=== PATIENT | female | born 1980 | race American Indian/Alaskan Native ===

== ENCOUNTER 2020-01-01 19:56 | Emergency (ER) | payer SELFPAY ==
[2020-01-01 20:07] VITALS: BP 139/80
[2020-01-01] MEDS: traMADol 50 MG TAB PO ONE (21:03)
--- NOTE | 2020-01-01 21:15 | Emergency Department Report ---
ED Lower Extremity HPI - General Chief Complaint: Extremity Injury, Lower Stated Complaint: LEFT FOOT PAIN AND SWELLING Time Seen by Provider: 01/01/20 20:53 Source: patient Mode of arrival: Ambulatory Limitations: No Limitations - History of Present Illness Initial Comments: Ms. Price is a 39-year-old white female with a history of traumatic injury le ft foot. She presents for increased pain and swelling for the past 3 days. She denies new fall injury or trauma. States pain is rated at 5/10 aching. Pain is exacerbated by weightbearing. Pain is relieved by offloading. Patient states newly arrived in [place] and cannot see orthopedic surgery however requesting pain medication for foot pain that is chronic at this time.. She is partially amatory to baseline at this point. MD Complaint: foot injury Onset/Timin -: days(s) Injury: Foot: Left Type of Injury: other (hx trauma foot fracture ) Place: home Severity: moderate Severity scale (0 -10): 5 Improves With: rest Worsens With: weight bearing, movement, palpation Context: other (hx traumatic fx ) Associated Symptoms: swelling, tingling, able to partially bear weight. denies: numbness - Related Data Previous Rx's Medication Instructions Recorded Last Taken Type Acetaminophen [Acetaminophen TAB] 1,000 mg PO Q6HR PRN #30 tablet 01/01/20 Unknown Rx ED Review of Systems ROS: Stated complaint: LEFT FOOT PAIN AND SWELLING Other details as noted in HPI Constitutional: denies: chills, fever Eyes: denies: eye pain, eye discharge, vision change ENT: denies: ear pain, throat pain Respiratory: denies: cough, shortness of breath, wheezing Cardiovascular: denies: chest pain, palpitations Endocrine: no symptoms reported Gastrointestinal: denies: abdominal pain, nausea, diarrhea Genitourinary: denies: urgency, dysuria, discharge Musculoskeletal: joint swelling (left foot pain and swelling ), arthralgia. denies: back pain Skin: denies: rash, lesions Neurological: denies: headache, weakness, paresthesias Psychiatric: denies: anxiety, depression Hematological/Lymphatic: denies: easy bleeding, easy bruising ED Past Medical Hx - Past Medical History Previous Medical History?: Yes - Surgical History Past Surgical History?: Yes Additional Surgical History: historectomy liver biopsy left foot surgery. - Social History Smoking Status: Current Every Day Smoker Substance Use Type: None - Medications Home Medications: Home Medications Medication Instructions Recorded Confirmed Last Taken Type Acetaminophen [Acetaminophen TAB] 1,000 mg PO Q6HR PRN #30 tablet 01/01/20 Unknown Rx ED Physical Exam - General Limitations: No Limitations General appearance: alert, in no apparent distress - Head Head exam: Present: atraumatic, normocephalic - Eye Eye exam: Present: normal appearance - ENT ENT exam: Present: mucous membranes moist - Neck Neck exam: Present: normal inspection, full ROM. Absent: tenderness - Respiratory Respiratory exam: Present: normal lung sounds bilaterally. Absent: respiratory distress - Cardiovascular Cardiovascular Exam: Present: regular rate, normal rhythm, normal heart sounds. Absent: systolic murmur, diastolic murmur, rubs, gallop - GI/Abdominal GI/Abdominal exam: Present: soft, normal bowel sounds - Extremities Exam Extremities exam: Present: full ROM, tenderness (left lateral foot swelling no wound no fever no deformity ), normal capillary refill, joint swelling. Absent: pedal edema, calf tenderness - Expanded Lower Extremity Exam Left Foot/Toe exam: Present: full ROM, tenderness, swelling. Absent: abrasion, lac eration, ecchymosis, deformity, crepidus, dislocation, erythema, amputation, puncture wound, foreign body, calcaneal tenderness, tenderness at base of 5th metatarsal, nail avulsion, subungual hematoma Neuro vascular tendon exam: Absent: pulse deficit, motor deficit, sensory deficit, tendon deficit - Back Exam Back exam: Present: normal inspection, full ROM. Absent: tenderness - Neurological Exam Neurological exam: Present: alert, oriented X3, CN II-XII intact, normal gait - Psychiatric Psychiatric exam: Present: normal affect, normal mood - Skin Skin exam: Present: warm, dry, intact, normal color. Absent: rash ED Course Vital Signs 01/01/20 20:01 Temperature 97.8 F Pulse Rate 99 H Respiratory 18 Rate Blood Pressure 139/80 Blood Pressure 139/80 [Right] O2 Sat by Pulse 99 Oximetry ED Lower Extremity MDM - Radiology Data Radiology results: report reviewed, image reviewed Findings Reporting MD: Gal Kelly Dictation Time: January 01, 2020 20:32 Stereotyper Apprentice: Not available Presales Engineer Date: LEFT ANKLE, 3 VIEWS 01/01/2020 INDICATION / CLINICAL INFORMATION: pain swelling. COMPARISON: None available. FINDINGS: No ankle fracture or dislocation. The ankle mortise is well maintained. Orthopedic screws and plate are demonstrated in the calcaneus. Signer Name: Gal Kelly MD Signed: 01/01/2020 8:32 PM Workstation Name: [email or web address] - Medical Decision Making X-rays negative for fracture. There is no acute fracture. Plan NSAIDs follow- up with orthopedic surgery. Patient verbalized agreement and understanding with discharge plan. Patient DC'd home in stable condition at this time. Critical care attestation.: If time is entered above; I have spent that time in minutes in the direct care of this critically ill patient, excluding procedure time. ED Disposition Clinical Impression: Arthralgia Qualifiers: Joint pain location: ankle Laterality: left Qualified Code(s): M25.572 - Pain in left ankle and joints of left foot Disposition: DC-01 TO HOME OR SELFCARE Is pt being admited?: No Does the pt Need Aspirin: No Condition: Stable Instructions: Arthralgia (ED) Prescriptions: Acetaminophen [Acetaminophen TAB] 1,000 mg PO Q6HR PRN #30 tablet PRN Reason: pain Referrals: CATHIE DEE MD [Staff Physician] - 3-5 Days Forms: Work/School Release Form Time of Disposition: 22:16
--- NOTE | 2020-01-01 21:37 | XRay Report ---
LEFT ANKLE, 3 VIEWS 01/01/2020 INDICATION / CLINICAL INFORMATION: pain swelling. COMPARISON: None available. FINDINGS: No ankle fracture or dislocation. The ankle mortise is well maintained. Orthopedic screws and plate are demonstrated in the calcaneus. Signer Name: Gal Kelly MD Signed: 01/01/2020 9:32 PM Workstation Name: [id number]
--- NOTE | 2020-01-01 21:38 | XRay Report ---
LEFT FOOT, 3 VIEWS 01/01/2020 INDICATION / CLINICAL INFORMATION: Left foot pain and swelling. COMPARISON: None available. FINDINGS: ORIF calcaneal fracture with posterior screw and lateral screws and plate. No acute skeletal abnormality. Signer Name: Gal Kelly MD Signed: 01/01/2020 9:34 PM Workstation Name: [id number]
== END 2020-01-01 22:39 | disposition home or self-care (01) ==
LOC: ED 19:56
DX: M25.572 Pain in left ankle and joints of left foot (principal); F17.200 Nicotine dependence, unspecified, uncomplicated; Z90.710 Acquired absence of both cervix and uterus; Z79.899 Other long term (current) drug therapy; Z98.890 Other specified postprocedural states
CPT/HCPCS: 99282

== ENCOUNTER 2022-01-30 13:26 | Emergency (ER) | payer SELFPAY ==
[2022-01-30] MEDS ORDERED: KETOROLAC 10 MG TAB PO ONE (17:55)
[2022-01-30] MEDS ORDERED: dexAMETHasone 4 MG/ML VIAL IM ONE (17:55)
[2022-01-30] MEDS ORDERED: oxyCODONE /ACETAMINOPHEN 5-325MG TAB PO ONE (17:56)
[2022-01-30] MEDS ORDERED: CYCLOBENZAPRINE 10 MG TAB PO ONE (17:56)
--- NOTE | 2022-01-30 18:05 | Emergency Department Report ---
ED Extremity Problem HPI - General Chief complaint: Pain General Stated complaint: LEFT HIP/LOWER LEG PAIN Time Seen by Provider: 01/30/22 17:34 Source: patient Mode of arrival: Ambulatory Limitations: No Limitations - History of Present Illness Initial comments: 41-year-old white female with no past medical history presents to the emergency department for evaluation of left lower back and hip pain that radiates down her entire leg. She states that she has had the pain for the past 3 days and it is getting increasingly worse. She denies injury or trauma and states that pain is worse with certain positions. She states that pain is like a deep ache. She denies chest pain, shortness of breath, hemoptysis, and fever. MD Complaint: extremity pain -: Gradual, days(s) (3) Location: left, lower extremity History of Same: No -: No myalgia, No arthralgia, No fever, No associated dyspnea Severity scale (0 -10): 10 Quality: aching Consistency: constant Worsens with: weight bearing, palpation, other (Certain movements) Associated Symptoms: denies: chest pain, shortness of breath, fever, myalgias, arthralgias, rash - Related Data Previous Rx's Medication Instructions Recorded Last Taken Type Acetaminophen [Acetaminophen TAB] 1,000 mg PO Q6HR PRN #30 tablet 01/01/20 Unknown Rx Cyclobenzaprine [Flexeril] 10 mg PO TID PRN #30 tab 01/30/22 Unknown Rx Lidocaine [Lidoderm] 1 each TP DAILY PRN #10 patch 01/30/22 Unknown Rx Naproxen [Naprosyn] 500 mg PO BID #14 tab 01/30/22 Unknown Rx methylPREDNISolone [Medrol 4MG 4 mg PO DAILY #1 pack 01/30/22 Unknown Rx DOSEPAK (21 tabs)] Allergies Allergy/AdvReac Type Severity Reaction Status Date / Time codeine Allergy Itching Verified 01/30/22 14:09 hydrocodone Allergy Itching Verified 01/30/22 14:09 penicillin G Allergy Hives Verified 01/30/22 14:09 tramadol Allergy Itching Verified 01/30/22 14:09 ED Review of Systems ROS: Stated complaint: LEFT HIP/LOWER LEG PAIN Other details as noted in HPI Comment: All other systems reviewed and negative Constitutional: denies: chills, fever Respiratory: denies: shortness of breath Cardiovascular: denies: chest pain, palpitations Gastrointestinal: denies: abdominal pain, nausea, vomiting Genitourinary: denies: urgency, dysuria Musculoskeletal: back pain Neurological: denies: headache, weakness ED Past Medical Hx - Past Medical History Previous Medical History?: No - Surgical History Additional Surgical History: historectomy liver biopsy left foot surgery. - Social History Smoking Status: Current Every Day Smoker - Medications Home Medications: Home Medications Medication Instructions Recorded Confirmed Last Taken Type Acetaminophen [Acetaminophen TAB] 1,000 mg PO Q6HR PRN #30 tablet 01/01/20 Unknown Rx Cyclobenzaprine [Flexeril] 10 mg PO TID PRN #30 tab 01/30/22 Unknown Rx Lidocaine [Lidoderm] 1 each TP DAILY PRN #10 patch 01/30/22 Unknown Rx Naproxen [Naprosyn] 500 mg PO BID #14 tab 01/30/22 Unknown Rx methylPREDNISolone [Medrol 4MG 4 mg PO DAILY #1 pack 01/30/22 Unknown Rx DOSEPAK (21 tabs)] ED Physical Exam - General Limitations: No Limitations General appearance: alert, in no apparent distress - Head Head exam: Present: atraumatic, normocephalic - Eye Eye exam: Present: normal appearance. Absent: conjunctival injection - Neck Neck exam: Present: normal inspection, full ROM. Absent: tenderness - Respiratory Respiratory exam: Absent: respiratory distress - Cardiovascular Cardiovascular Exam: Present: regular rate - GI/Abdominal GI/Abdominal exam: Absent: distended - Back Exam Back exam: Present: normal inspection. Absent: CVA tenderness (R), CVA tenderness (L), vertebral tenderness - Expanded Back Exam Expanded Back exam: Absent: saddle anesthesia Back exam: Positive Straight Leg Raise: Left, Negative Straight Leg Raising: Right 1 - Tenderness - Neurological Exam Neurological exam: Present: alert, oriented X3, CN II-XII intact, normal gait, reflexes normal. Absent: motor sensory deficit - Psychiatric Psychiatric exam: Present: normal affect, normal mood - Skin Skin exam: Present: warm, dry, intact, normal color ED Course Vital Signs 01/30/22 01/30/22 14:03 18:26 Temperature 98.2 F 98.2 F Pulse Rate 79 60 Respiratory 18 14 Rate Blood Pressure 90/49 Blood Pressure 100/59 [Right] O2 Sat by Pulse 100 98 Oximetry ED Medical Decision Making - Medical Decision Making 41-year-old white female with no past medical history presents to the emergency department for evaluation of left lower back and hip pain that radiates down her entire leg. She states that she has had the pain for the past 3 days and it is getting increasingly worse. She denies injury or trauma and states that pain is worse with certain positions. She states that pain is like a deep ache. She denies chest pain, shortness of breath, hemoptysis, and fever. Complaint and exam consistent with sciatic nerve pain to the left side. Patient will be treated with Decadron 8 mg IM, Toradol 10 mg p.o., Flexeril 10 mg p.o., and Percocet 1 tab p.o. while in the emergency department then discharged home with Medrol Dosepak, Flexeril, naproxen, and Lidoderm patches to use as directed. She is advised to follow-up with her primary care provider if no improvement or worsening symptoms. She is advised to return to the emergency department for any concerning symptoms. She verbalizes understanding of and agreement with plan of care. Critical care attestation.: If time is entered above; I have spent that time in minutes in the direct care of this critically ill patient, excluding procedure time. ED Disposition Clinical Impression: Left sciatic nerve pain Disposition: HOME / SELF CARE / HOMELESS Is pt being admited?: No Does the pt Need Aspirin: No Condition: Stable Instructions: Sciatica, Malj-ki-Irak, Sciatica Rehab-SportsMed Additional Instructions: Take medications as prescribed. Follow-up with primary care provider if no improvement or worsening symptoms. Turn to the emergency department as needed. Prescriptions: Cyclobenzaprine [Flexeril] 10 mg PO TID PRN #30 tab PRN Reason: Muscle Spasm Lidocaine [Lidoderm] 1 each TP DAILY PRN #10 patch PRN Reason: Pain, Moderate (4-6) methylPREDNISolone [Medrol 4MG DOSEPAK (21 tabs)] 4 mg PO DAILY #1 pack Naproxen [Naprosyn] 500 mg PO BID #14 tab Referrals: NITO RIBEIRO MD [Staff Physician] - 3-5 Days CATHIE DEE MD [Staff Physician] - 3-5 Days Forms: Work/School Release Form(ED) Time of Disposition: 18:05
[2022-01-30 18:27] VITALS: BP 100/59
== END 2022-01-30 18:33 | disposition home or self-care (01) ==
LOC: ED 13:26
DX: M54.32 Sciatica, left side (principal); F17.200 Nicotine dependence, unspecified, uncomplicated; Z88.0 Allergy status to penicillin; Z91.09 Other allergy status, other than to drugs and biological substances; Z79.899 Other long term (current) drug therapy
CPT/HCPCS: 96372; 99282; J1100

== ENCOUNTER 2022-02-02 23:21 | Inpatient (IN) | payer SELFPAY ==
--- NOTE | 2022-02-03 02:09 | XRay Report ---
LEFT HIP 3 VIEW(S) INDICATION / CLINICAL INFORMATION: left hip pain COMPARISON: None available. FINDINGS: BONES / JOINT(S): Acute nondisplaced fracture of the left femoral neck is demonstrated. No dislocatio n of the left femoral head. Osseous structures of the lower lumbar spine, pelvis, proximal right femu r demonstrate no acute pathology. No significant arthritis. SOFT TISSUES: No significant abnormality. ADDITIONAL FINDINGS: None. IMPRESSION: 1. Acute nondisplaced fracture left femoral neck. Signer Name: Ajit Garcia II, MD Signed: 02/03/2022 2:05 AM Workstation Name: [id number]
[2022-02-03] MEDS ORDERED: MORPHINE 4 MG/1 ML INJ IV ONE (09:32)
[2022-02-03] MEDS ORDERED: ONDANSETRON 4 MG/2 ML INJ IV ONE (09:32)
--- NOTE | 2022-02-03 09:58 | Emergency Department Report ---
<ANNE-MARIEBENSANDY Terrell - Last Filed: 02/03/22 09:54> ED Lower Extremity HPI - General Chief Complaint: Extremity Injury, Lower Stated Complaint: LEFT HIP PAIN Time Seen by Provider: 02/03/22 09:31 Source: patient, family Mode of arrival: Ambulatory Limitations: No Limitations - History of Present Illness Initial Comments: 41-year-old white female with no past medical history presents to the emergency department for evaluation of left hip pain. She states that she was seen here on January 30 for the same complaint, given some medications, but only had minimal improvement in her hip pain. She states that a couple of days ago she tripped and fell over her cat and since then left hip pain has been significantly worse and she has been unable to ambulate on left lower extremity. She denies fever, nausea, vomiting. MD Complaint: hip injury -: Gradual, days(s) (2-3) Injury: Hip: Left Type of Injury: blunt Place: home Severity: severe Severity scale (0 -10): 10 Worsens With: weight bearing, movement, palpation Context: fall Associated Symptoms: unable to bear weight. denies: snap/pop sensation, swelling, numbness, tingling - Related Data Previous Rx's Medication Instructions Recorded Last Taken Type Acetaminophen [Acetaminophen TAB] 1,000 mg PO Q6HR PRN #30 tablet 01/01/20 Unknown Rx Cyclobenzaprine [Flexeril] 10 mg PO TID PRN #30 tab 01/30/22 Unknown Rx Lidocaine [Lidoderm] 1 each TP DAILY PRN #10 patch 01/30/22 Unknown Rx Naproxen [Naprosyn] 500 mg PO BID #14 tab 01/30/22 Unknown Rx methylPREDNISolone [Medrol 4MG 4 mg PO DAILY #1 pack 01/30/22 Unknown Rx DOSEPAK (21 tabs)] Allergies Allergy/AdvReac Type Severity Reaction Status Date / Time codeine Allergy Itching Verified 01/30/22 14:09 hydrocodone Allergy Itching Verified 01/30/22 14:09 penicillin G Allergy Hives Verified 01/30/22 14:09 tramadol Allergy Itching Verified 01/30/22 14:09 ED Review of Systems Comment: All other systems reviewed and negative Constitutional: denies: chills, fever Respiratory: denies: shortness of breath Cardiovascular: denies: chest pain Gastrointestinal: denies: abdominal pain, nausea, vomiting Musculoskeletal: denies: back pain Neurological: denies: headache, weakness ED Past Medical Hx - Past Medical History Previous Medical History?: No - Surgical History Past Surgical History?: Yes Additional Surgical History: historectomy liver biopsy left foot surgery. - Social History Smoking Status: Current Every Day Smoker Substance Use Type: None - Medications Home Medications: Home Medications Medication Instructions Recorded Confirmed Last Taken Type Acetaminophen [Acetaminophen TAB] 1,000 mg PO Q6HR PRN #30 tablet 01/01/20 Unknown Rx Cyclobenzaprine [Flexeril] 10 mg PO TID PRN #30 tab 01/30/22 Unknown Rx Lidocaine [Lidoderm] 1 each TP DAILY PRN #10 patch 01/30/22 Unknown Rx Naproxen [Naprosyn] 500 mg PO BID #14 tab 01/30/22 Unknown Rx methylPREDNISolone [Medrol 4MG 4 mg PO DAILY #1 pack 01/30/22 Unknown Rx DOSEPAK (21 tabs)] ED Physical Exam - General Limitations: No Limitations General appearance: alert, in no apparent distress - Head Head exam: Present: atraumatic, normocephalic - Eye Eye exam: Present: normal appearance. Absent: conjunctival injection - Neck Neck exam: Present: normal inspection, full ROM. Absent: tenderness - Respiratory Respiratory exam: Absent: respiratory distress - Cardiovascular Cardiovascular Exam: Present: regular rate - GI/Abdominal GI/Abdominal exam: Absent: distended - Expanded Lower Extremity Exam Left Hip exam: Present: tenderness. Absent: full ROM, swelling, ecchymosis, crepidus, dislocation, erythema, shortening Upper Leg exam: Present: normal inspection, tenderness Knee exam: Present: normal inspection, full ROM. Absent: tenderness, swelling Lower Leg exam: Absent: normal inspection, tenderness Neuro vascular tendon exam: Present: no vascular compromise. Absent: pulse deficit, abnormal cap refill, motor deficit, sensory deficit, extremity cold to touch Gait: Positive: unable to bear weight - Neurological Exam Neurological exam: Present: alert, oriented X3 - Psychiatric Psychiatric exam: Present: normal affect, normal mood - Skin Skin exam: Present: warm, dry, intact, normal color ED Disposition Clinical Impression: Femur fracture, left Qualifiers: Encounter type: initial encounter Femur location: base of neck Fracture type: closed Disposition: ADMITTED INPATIENT Condition: Good Referrals: PRIMARY CARE, [Primary Care Provider] - 3-5 Days <SATHYA DANGELO - Last Filed: 02/03/22 11:40> ED Review of Systems ROS: Stated complaint: LEFT HIP PAIN Other details as noted in HPI ED Course Vital Signs 02/03/22 02/03/22 02/03/22 00:47 10:21 10:30 Temperature 98.8 F Pulse Rate 90 77 90 Respiratory 18 16 16 Rate Blood Pressure 115/62 O2 Sat by Pulse 97 Oximetry - Reevaluation(s) Reevaluation #1: 02/03/22 10:11 Patient is found to have left femoral neck fracture. She is neurovascularly intact. Dr. Machuca, the orthopedist was consulted by my colleague, nurse practitioner aVsile. Dr. Machuca will follow in consultation. Preoperative laboratory studies have been ordered. Patient is agreeable to admission and hospitalization. Hospital physician, Dr. Machado to admit to [facility] ED Lower Extremity MDM - Lab Data Result diagrams: 02/03/22 09:32 02/03/22 09:32 Vital Signs 02/03/22 00:47 Temperature 98.8 F Pulse Rate 90 Respiratory 18 Rate Blood Pressure 115/62 O2 Sat by Pulse 97 Oximetry Lab Results 02/03/22 02/03/22 02/03/22 Range/Units 09:32 09:32 09:32 WBC 13.4 H (4.5-11.0) K/mm3 RBC 4.63 (3.65-5.03) M/mm3 Hgb 14.4 H (10.1-14.3) gm/dl Hct 43.3 H (30.3-42.9) % MCV 94 (79-97) fl MCH 31 (28-32) pg MCHC 33 (30-34) % RDW 14.8 (13.2-15.2) % Plt Count 382 (140-440) K/mm3 PT 13.4 (12.2-14.9) Sec. INR 0.92 (0.87-1.13) APTT 26.0 (24.2-36.6) Sec. Sodium 138 (137-145) mmol/L Potassium 3.2 L (3.6-5.0) mmol/L Chloride 104.9 (98-107) mmol/L Carbon Dioxide 21 L (22-30) mmol/L Anion Gap 15 mmol/L BUN 13 (7-17) mg/dL Creatinine 0.6 (0.6-1.2) mg/dL Estimated GFR > 60 ml/min BUN/Creatinine Ratio 22 % Glucose 93 (65-100) mg/dL Calcium 8.9 (8.4-10.2) mg/dL Blood Type Antibody Screen 02/03/22 Range/Units 10:17 WBC (4.5-11.0) K/mm3 RBC (3.65-5.03) M/mm3 Hgb (10.1-14.3) gm/dl Hct (30.3-42.9) % MCV (79-97) fl MCH (28-32) pg MCHC (30-34) % RDW (13.2-15.2) % Plt Count (140-440) K/mm3 PT (12.2-14.9) Sec. INR (0.87-1.13) APTT (24.2-36.6) Sec. Sodium (137-145) mmol/L Potassium (3.6-5.0) mmol/L Chloride (98-107) mmol/L Carbon Dioxide (22-30) mmol/L Anion Gap mmol/L BUN (7-17) mg/dL Creatinine (0.6-1.2) mg/dL Estimated GFR ml/min BUN/Creatinine Ratio % Glucose (65-100) mg/dL Calcium (8.4-10.2) mg/dL Blood Type B POSITIVE Antibody Screen Negative - Radiology Data Radiology results: pending, report reviewed, image reviewed LEFT HIP 3 VIEW(S) INDICATION / CLINICAL INFORMATION: left hip pain COMP ARISON: None available. FINDINGS: BONES / JOINT(S): Acute nondisplaced fracture of the left femoral neck is demonstrated. No dislocation of the left femoral head. Osseous structures of the lower lumbar spine, pelvis, proximal right femur demonstrate no acute pathology. No significant arthritis. SOFT TISSUES: No significant abnormality. ADDITIONAL FINDINGS: None. IMPRESSION: 1. Acute nondisplaced fracture left femoral neck. Signer Name: Ajit Garcia II, MD Signed: 02/03/2022 1:05 AM Workstation Name: [id number] Critical care attestation.: If time is entered above; I have spent that time in minutes in the direct care of this critically ill patient, excluding procedure time. ED Disposition Is pt being admited?: Yes Does the pt Need Aspirin: No
[2022-02-03] MEDS: SODIUM CHLORIDE 0.9% 1000 ML 1,000 ML IV SCH ×3 (10:24→21:57)
[2022-02-03 10:30] LABS: Hematocrit 43.3 % (30.3-42.9); Hemoglobin 14.4 gm/dl (10.1-14.3); Mean Corpuscular HGB Conc 33 % (30-34); Mean Corpuscular Volume 94 fl (79-97); Platelet Count 382 K/mm3 (140-440); Red Blood Count 4.63 M/mm3 (3.65-5.03); Red Cell Distribution Width 14.8 % (13.2-15.2)
[2022-02-03 10:42] LABS: Blood Urea Nitrogen 13 mg/dL (7-17); Calcium 8.9 mg/dL (8.4-10.2); Hemolysis Index 34; INR 0.92 (0.87-1.13)
[2022-02-03 10:48] LABS: BUN/Creatinine Ratio 22
[2022-02-03] MEDS ORDERED: MORPHINE 4 MG/1 ML INJ IV PRN (10:55)
[2022-02-03] MEDS ORDERED: ACETAMINOPHEN 325 MG TAB PO PRN (11:00)
[2022-02-03] MEDS ORDERED: KETOROLAC 30 MG/1 ML INJ ONE (11:17)
[2022-02-03] MEDS ORDERED: POTASSIUM CHLORIDE ER 20 MEQ TAB PO ONE ×2 (11:38→15:00)
[2022-02-03] MEDS ORDERED: KETOROLAC 30 MG/1 ML INJ IV ONE (11:47)
[2022-02-03] MEDS: ENOXAPARIN 30 MG/0.3 ML INJ SUB-Q SCH (11:48)
--- NOTE | 2022-02-03 12:10 | Anesthesia Day of Surgery ---
Anesthesia Day of Surgery - Day of Surgery Patient Examined: Yes Patient H&P Reviewed: Yes Patient is NPO: Yes (last water @8AM )
--- NOTE | 2022-02-03 12:10 | Anesthesia Consultation ---
Anesthesia Consult and Med Hx Date of service: 02/03/22 - Airway Anesthetic Teeth Evaluation: Edentulous ROM Head & Neck: Adequate Mental/Hyoid Distance: Adequate Mallampati Class: Class II Intubation Access Assessment: Probably Good - Pre-Operative Health Status ASA Pre-Surgery Classification: ASA2 Proposed Anesthetic Plan: General - Pulmonary Hx Smoking: Yes (1 pack/day x 25 years) - Central Nervous System Hx Back Pain: Yes (left femoral head fracture)
--- NOTE | 2022-02-03 13:31 | History and Physical Report ---
History of Present Illness Date of examination: 02/03/22 Date of admission: 02/03/22 10:55 Chief complaint: Acute nondisplaced fracture of left femoral neck History of present illness: Patient is a 41-year-old female past medical history of tobacco dependence, vitamin D deficiency, hysterectomy (age 29; secondary to severe uterine prolapse) followed by estrogen administration complicated by lower extremity DVT (anticoagulation has since been discontinued) and hepatic thromboses resulting in estrogen being discontinued (2015) who presented with worsening left hip pain after going on a hike/walk approximately 5 days ago. Patient describes accidentally stumbling over her cat and catching herself without falling onto the ground. She described preventing herself from falling by stepping over her cat with significant pressure placed on her left leg upon impact. She describes initially believing that she had overexerted herself; however, the hip pain continue to worsen. Patient denies any prior fractures or family history of osteoporosis. On presentation to the ED, the patient was found to be hemodynamically stable. Orthopedics has been consulted and is planning for surgical intervention for repair of her left femoral neck fracture. Patient is being admitted for further management. Past History Past Medical History: DVT, other (Uterine prolapse, hepatic thromboses) Past Surgical History: hysterectomy, Other (Left foot surgery) Social history: single, smoking, full code Family history: no significant family history Medications and Allergies Allergies Allergy/AdvReac Type Severity Reaction Status Date / Time codeine Allergy Itching Verified 01/30/22 14:09 hydrocodone Allergy Itching Verified 01/30/22 14:09 penicillin G Allergy Hives Verified 01/30/22 14:09 tramadol Allergy Itching Verified 01/30/22 14:09 Home Medications Medication Instructions Recorded Confirmed Last Taken Type Acetaminophen [Acetaminophen TAB] 1,000 mg PO Q6HR PRN #30 tablet 01/01/20 Unknown Rx Cyclobenzaprine [Flexeril] 10 mg PO TID PRN #30 tab 01/30/22 Unknown Rx Lidocaine [Lidoderm] 1 each TP DAILY PRN #10 patch 01/30/22 Unknown Rx Naproxen [Naprosyn] 500 mg PO BID #14 tab 01/30/22 Unknown Rx methylPREDNISolone [Medrol 4MG 4 mg PO DAILY #1 pack 01/30/22 Unknown Rx DOSEPAK (21 tabs)] Active Meds: Active Medications Acetaminophen (Acetaminophen 325 Mg Tab) 650 mg PO Q4H PRN PRN Reason: Pain MILD(1-3)/Fever >100.5/MANCUSO Enoxaparin Sodium (Enoxaparin 30 Mg/0.3 Ml Inj) 40 mg SUB-Q QDAY [facility] Last Admin: 02/03/22 11:48 Dose: Not Given Hydromorphone HCl (Hydromorphone 1 Mg/1 Ml Inj) 1.5 mg IV Q4HR PRN PRN Reason: Pain , Severe (7-10) Sodium Chloride (Nacl 0.9% 1000 Ml) 1,000 mls @ 150 mls/hr IV DIRECT [facility] Last Admin: 02/03/22 10:24 Dose: 150 mls/hr Morphine Sulfate (Morphine 2 Mg/1 Ml Inj) 2 mg IV Q4H PRN PRN Reason: Pain, Moderate (4-6) Sodium Chloride (Sodium Chloride 0.9% 10 Ml Flush Syringe) 10 ml IV BID [facility] Sodium Chloride (Sodium Chloride 0.9% 10 Ml Flush Syringe) 10 ml IV PRN PRN PRN Reason: LINE FLUSH Review of Systems All systems: negative Musculoskeletal: fractures (Fracture of left femoral neck) Exam - Constitutional Vitals: Temp Pulse Resp BP Pulse Ox 98.8 F 90 16 115/62 97 02/03/22 00:47 02/03/22 10:30 02/03/22 10:30 02/03/22 00:47 02/03/22 00:47 General appearance: Present: mild distress, well-nourished - EENT Eyes: Present: PERRL, EOM intact ENT: hearing intact, clear oral mucosa, dentition normal - Neck Neck: Present: supple, normal ROM - Respiratory Respiratory effort: normal Respiratory: bilateral: CTA - Cardiovascular Rhythm: regular Heart Sounds: Present: S1 & S2 - Extremities Extremities: no ischemia, pulses intact, pulses symmetrical, No edema, normal temperature, normal color, Full ROM Peripheral Pulses: within normal limits - Abdominal General gastrointestinal: Present: soft, non-tender, non-distended, normal bowel sounds Female genitourinary: Present: deferred - Rectal Rectal Exam: deferred - Integumentary Integumentary: Present: clear, warm, dry - Musculoskeletal Musculoskeletal: strength equal bilaterally, other (Severe tenderness of left hip) - Psychiatric Psychiatric: appropriate mood/affect, intact judgment & insight, memory intact, cooperative - Neurologic Neurologic: CNII-XII intact, moves all extremities - Allied Health Allied health notes reviewed: nursing HEART Score - HEART Score EKG: Normal Age: < 45 Risk factors: 1-2 risk factors Troponin: < normal limit - Critical Actions Critical Actions: 0-3 pts:0.9-1.7%risk of adverse cardiac event.Candidate for discharge Results - Labs CBC & Chem 7: 02/03/22 09:32 02/03/22 09:32 Labs: Laboratory Last Values WBC 13.4 K/mm3 (4.5-11.0) H 02/03/22 09:32 RBC 4.63 M/mm3 (3.65-5.03) 02/03/22 09:32 Hgb 14.4 gm/dl (10.1-14.3) H 02/03/22 09:32 Hct 43.3 % (30.3-42.9) H 02/03/22 09:32 MCV 94 fl (79-97) 02/03/22 09:32 MCH 31 pg (28-32) 02/03/22 09:32 MCHC 33 % (30-34) 02/03/22 09:32 RDW 14.8 % (13.2-15.2) 02/03/22 09:32 Plt Count 382 K/mm3 (140-440) 02/03/22 09:32 PT 13.4 Sec. (12.2-14.9) 02/03/22 09:32 INR 0.92 (0.87-1.13) 02/03/22 09:32 APTT 26.0 Sec. (24.2-36.6) 02/03/22 09:32 Sodium 138 mmol/L (137-145) 02/03/22 09:32 Potassium 3.2 mmol/L (3.6-5.0) L 02/03/22 09:32 Chloride 104.9 mmol/L (98-107) 02/03/22 09:32 Carbon Dioxide 21 mmol/L (22-30) L 02/03/22 09:32 Anion Gap 15 mmol/L 02/03/22 09:32 BUN 13 mg/dL (7-17) 02/03/22 09:32 Creatinine 0.6 mg/dL (0.6-1.2) 02/03/22 09:32 Estimated GFR > 60 ml/min 02/03/22 09:32 BUN/Creatinine Ratio 22 % 02/03/22 09:32 Glucose 93 mg/dL (65-100) 02/03/22 09:32 Calcium 8.9 mg/dL (8.4-10.2) 02/03/22 09:32 HCG, Qual Negative (Negative) 02/03/22 09:32 Blood Type B POSITIVE 02/03/22 10:17 Antibody Screen Negative 02/03/22 10:17 Assessment and Plan Assessment and plan: #Acute nondisplaced fracture of left femoral neck Visualized on x-ray of the left hip Orthopedic surgery consulted; pending recs. Planning for surgical intervention today (03/02/2022) Continue analgesics as needed. Pending vitamin D and calcium levels. Continue Lovenox 40 mg daily given increased DVT risk in the setting of acute femur fracture. Following surgical intervention, patient will require anticoagulation for 35 days. Physical therapy consulted; pending recs. Continue to monitor. #Hypokalemia Potassium 3.2 Repleted. Continue to monitor. #Leukocytosis WBC 13.4 Likely secondary to stress response in the setting of acute nondisplaced fracture of left femoral neck. Continue to monitor. Low clinical suspicion of infection since the patient is afebrile, hemodynamically stable, and has no source of possible infection. #History of DVT Secondary to estrogen administration that is no longer a current therapy. #Tobacco dependence #Tobacco/Smoking cessation counseling - Counseled patient about the importance of smoking cessation and the possible sequelae as a result of continued tobacco consumption. The patient expresses und erstanding. -Time: +15 mins #Advanced care planning -Disease education conducted, care plan discussed, diagnoses discussed, prognosis discussed, and patient acknowledges understanding with care plan -Time: +30 min Advance Directives: Yes VTE prophylaxis?: Chemical Plan of care discussed with patient/family: Yes
[2022-02-03] MEDS: HYDROmorphone 1 MG/1 ML INJ IV PRN ×2 (13:40→21:51)
--- NOTE | 2022-02-03 14:34 | Consultation ---
History of Present Illness - HPI Consult date: 02/03/22 Consult reason: joint pain, fracture History of present illness: 41-year-old female with a history of osteopenia who states she tripped and fell today and was unable to place weight onto her left side patient was seen in our emergency department where x-rays taken showed a nondisplaced left femoral neck fracture patient denies any other injury Past History Past Medical History: DVT, other (Uterine prolapse, hepatic thromboses) Past Surgical History: hysterectomy, Other (Left foot surgery) Social history: single, smoking, full code Family history: no significant family history Medications and Allergies Allergies Allergy/AdvReac Type Severity Reaction Status Date / Time codeine Allergy Itching Verified 01/30/22 14:09 hydrocodone Allergy Itching Verified 01/30/22 14:09 penicillin G Allergy Hives Verified 01/30/22 14:09 tramadol Allergy Itching Verified 01/30/22 14:09 Home Medications Medication Instructions Recorded Confirmed Last Taken Type Acetaminophen [Acetaminophen TAB] 1,000 mg PO Q6HR PRN #30 tablet 01/01/20 Unknown Rx Cyclobenzaprine [Flexeril] 10 mg PO TID PRN #30 tab 01/30/22 Unknown Rx Lidocaine [Lidoderm] 1 each TP DAILY PRN #10 patch 01/30/22 Unknown Rx Naproxen [Naprosyn] 500 mg PO BID #14 tab 01/30/22 Unknown Rx methylPREDNISolone [Medrol 4MG 4 mg PO DAILY #1 pack 01/30/22 Unknown Rx DOSEPAK (21 tabs)] Active Meds: Active Medications Acetaminophen (Acetaminophen 325 Mg Tab) 650 mg PO Q4H PRN PRN Reason: Pain MILD(1-3)/Fever >100.5/MANCUSO Enoxaparin Sodium (Enoxaparin 30 Mg/0.3 Ml Inj) 40 mg SUB-Q QDAY [facility] Last Admin: 02/03/22 11:48 Dose: Not Given Hydromorphone HCl (Hydromorphone 1 Mg/1 Ml Inj) 1.5 mg IV Q4HR PRN PRN Reason: Pain , Severe (7-10) Last Admin: 02/03/22 13:40 Dose: 1.5 mg Sodium Chloride (Nacl 0.9% 1000 Ml) 1,000 mls @ 150 mls/hr IV DIRECT [facility] Last Admin: 02/03/22 10:24 Dose: 150 mls/hr Morphine Sulfate (Morphine 2 Mg/1 Ml Inj) 2 mg IV Q4H PRN PRN Reason: Pain, Moderate (4-6) Sodium Chloride (Sodium Chloride 0.9% 10 Ml Flush Syringe) 10 ml IV BID [facility] Sodium Chloride (Sodium Chloride 0.9% 10 Ml Flush Syringe) 10 ml IV PRN PRN PRN Reason: LINE FLUSH Physical Examination - Physical exam Narrative exam: Left lower extremity here patient is noted to have tenderness about the proximal thigh there is no obvious deformity there is decreased active range of motion distal neurovascular status was intact remainder of physical exam is unremarkable Plain x-rays from the emergency department were reviewed by me and show a nondisplaced fracture involving the superior portion of the femoral neck almost at the junction of the intertrochanteric line Assessment and Plan Nondisplaced left femoral neck fracture Recommend prophylactic pinning with cannulated screw fixation followed by physical therapy for gait training
[2022-02-03] MEDS: MORPHINE 2 MG/1 ML INJ IV PRN (17:38)
[2022-02-03] MEDS: NICOTINE 21 MG/24 HR PATCH TD SCH (18:40)
[2022-02-04] MEDS: HYDROmorphone 1 MG/1 ML INJ IV PRN ×4 (02:05→20:38)
[2022-02-04] MEDS: SODIUM CHLORIDE 0.9% 1000 ML 1,000 ML IV SCH (06:00)
[2022-02-04 06:05] LABS: Basophils # (Auto) 0.1 K/mm3 (0.0-0.1); Basophils % (Auto) 1.5 % (0.0-1.8); Eosinophils % (Auto) 0.7 % (0.0-4.3); Hematocrit 41.5 % (30.3-42.9); Hemoglobin 14.1 gm/dl (10.1-14.3); Lymphocytes # (Auto) 1.6 K/mm3 (1.2-5.4); Lymphocytes % (Auto) 23.7 % (13.4-35.0); Mean Corpuscular HGB Conc 34 % (30-34); Mean Corpuscular Volume 94 fl (79-97); Monocytes # (Auto) 0.5 K/mm3 (0.0-0.8); Monocytes % (Auto) 7.6 % (0.0-7.3); Platelet Count 319 K/mm3 (140-440); Red Blood Count 4.43 M/mm3 (3.65-5.03); Red Cell Distribution Width 14.7 % (13.2-15.2)
[2022-02-04 06:15] LABS: INR 0.83 (0.87-1.13)
[2022-02-04 06:28] LABS: Blood Urea Nitrogen 13 mg/dL (7-17); Calcium 8.2 mg/dL (8.4-10.2); Hemolysis Index 10
[2022-02-04 06:35] LABS: BUN/Creatinine Ratio 22
[2022-02-04] MEDS ORDERED: HYDROmorphone 1 MG/1 ML INJ ONE ×2 (08:48→10:17)
[2022-02-04] MEDS: MORPHINE 2 MG/1 ML INJ IV PRN (08:48)
[2022-02-04] MEDS ORDERED: LIDOCAINE MPF (2%) 20 MG/1 ML VIAL 5 ML ONE (08:48)
[2022-02-04] MEDS ORDERED: ONDANSETRON 4 MG/2 ML INJ ONE (08:48)
[2022-02-04] MEDS ORDERED: propofoL 200 MG/20 ML VIAL IV ONE (08:49)
[2022-02-04] MEDS: ENOXAPARIN 30 MG/0.3 ML INJ SUB-Q SCH (09:00)
[2022-02-04] MEDS: NICOTINE 21 MG/24 HR PATCH TD SCH (09:01)
[2022-02-04] MEDS ORDERED: dexAMETHasone 20 MG/5 ML VIAL ONE (09:44)
[2022-02-04] MEDS ORDERED: VANCOMYCIN/NS 1 GM/250 ML 1 GM/250 ML BAG IV NR (10:00)
[2022-02-04] MEDS ORDERED: IBUPROFEN 800 MG TAB PO PRN (10:03)
[2022-02-04] MEDS ORDERED: MORPHINE 4 MG/1 ML INJ IV PRN (10:03)
[2022-02-04] MEDS ORDERED: MORPHINE 2 MG/1 ML INJ IV PRN (10:03)
[2022-02-04] MEDS ORDERED: ACETAMINOPHEN 650 MG RECT SUPP PR PRN (10:03)
[2022-02-04] MEDS ORDERED: KETOROLAC 30 MG/1 ML INJ IV PRN (10:03)
[2022-02-04] MEDS ORDERED: SODIUM CHLORIDE 0.9% IRR 1,500 ML BOTTLE IR ONE (10:04)
[2022-02-04] MEDS ORDERED: KETOROLAC 30 MG/1 ML INJ ONE (10:06)
--- NOTE | 2022-02-04 10:10 | Procedure Note ---
Date of procedure: 02/04/22 Pre-op diagnosis: nondisplaced left femoral neck fracrture Post-op diagnosis: same Procedure: Closed reduction insertion of cannulated screws left hip Procedure Patient was brought to the OR on the hospital bed following induction and intubation by anesthesia the patient was placed onto the OR table supine next the left hip was prepped and draped in the usual sterile manner C-arm fluoroscopy was used using a stab wound over the lateral border of the proximal femur and under centimeters the direction a threaded guidewire was inserted into the femoral neck and head next the targeting device was was inserted placed onto the initial guidewire this was then followed by insertion of 2 more guidewires and parallel fashion again utilizing C-arm visualization both AP and lateral views were obtained following this 3 partially-threaded 7.0 cannulated screws were inserted under C-arm direction AP and lateral views were obtained showing good placement of hardware next the wound was irrigated and was closed in a standard routine fashion. He was sent to postop anesthesia in stable condition Anesthesia: GETA Surgeon: CATHIE DEE (Dev Guerrero, 1st assist) Estimated blood loss: minimal Pathology: none Condition: stable Disposition: PACU
[2022-02-04] MEDS ORDERED: fentaNYL 100 MCG/2 ML INJ ONE (10:30)
[2022-02-04] MEDS ORDERED: fentaNYL 100 MCG/2 ML INJ IV PRN (10:32)
[2022-02-04] MEDS ORDERED: ONDANSETRON 4 MG/2 ML INJ IV PRN (10:32)
--- NOTE | 2022-02-04 10:51 | Post Anesthesia Evaluation ---
- Post Anesthesia Evaluation Patient Participated: Yes Airway Patent: Yes Stable Respiratory Function: Yes Nausea/Vomiting: No Temp > 96.8F: Yes Pain Manageable: Yes Adequeate Hydration: Yes Anesthesia Complications: No Block Receding Appropriately: Not Applicable Patient on Ventilator: No
--- NOTE | 2022-02-04 10:51 | Anesthesia Day of Surgery ---
Anesthesia Day of Surgery - Day of Surgery Patient Examined: Yes Patient H&P Reviewed: Yes Patient is NPO: Yes Beta Blockers: No Cardiac Clearance: No Pulmonary Clearance: No
--- NOTE | 2022-02-04 11:26 | XRay Report ---
INTRAOPERATIVE FLUOROSCOPY: LEFT HIP INDICATION / CLINICAL INFORMATION: IMAGES DURING LT HIP NAILING. TECHNIQUE: Intraoperative spot images were obtained during the procedure. FINDINGS: Status post open reduction internal fixation of the left femoral neck. Fluoroscopy Time: 0.3 minutes. Fluoroscopy Images: 2. Signer Name: Keegan Resendez DO Signed: 02/04/2022 11:22 AM Workstation Name: [id number]
[2022-02-04] MEDS: oxyCODONE 5 MG TAB PO PRN ×2 (12:35→18:40)
--- NOTE | 2022-02-04 13:26 | Progress Note ---
Assessment and Plan Assessment and plan: #Acute nondisplaced fracture of left femoral neck #Status post surgical intervention/repair Visualized on x-ray of the left hip Orthopedic surgery consulted; appreciate recs. Continue analgesics as needed. Pending vitamin D levels. Discontinue Lovenox 40 mg daily. Starting apixaban 2.5 mg twice daily (starting tomorrow) for total of 35 days. Physical therapy consulted; pending recs. Continue to monitor. #Hypokalemiaresolved Potassium 3.2 Repleted. Continue to monitor. #Hypocalcemia Calcium 8.2 Repleted. Continue to monitor. #Leukocytosis resolved WBC 13.4 Likely secondary to stress response in the setting of acute nondisplaced fracture of left femoral neck. Continue to monitor. Low clinical suspicion of infection since the patient is afebrile, hemodynamically stable, and has no source of possible infection. #History of DVT Secondary to estrogen administration that is no longer a current therapy. #Tobacco dependence #Tobacco/Smoking cessation counseling - Counseled patient about the importance of smoking cessation and the possible sequelae as a result of continued tobacco consumption. The patient expresses understanding. -Time: +15 mins #Advanced care planning -Disease education conducted, care plan discussed, diagnoses discussed, prognosis discussed, and patient acknowledges understanding with care plan -Time: +30 min #Discharge planning - Patient is pending evaluation by physical therapy. - Case management has been made aware. Disposition Plan: Continue medical management Total Time Spent with Patient (Minutes): 45 minutes History Interval history: No acute events overnight. Hospitalist Physical - Constitutional Vitals: Temp Pulse Resp BP Pulse Ox 97.9 F 73 20 134/84 100 02/04/22 11:57 02/04/22 11:57 02/04/22 11:57 02/04/22 11:57 02/04/22 11:57 General appearance: Present: mild distress, well-nourished - EENT Eyes: Present: PERRL, EOM intact ENT: hearing intact, clear oral mucosa, dentition normal - Neck Neck: Present: supple, normal ROM - Respiratory Respiratory effort: normal Respiratory: bilateral: CTA - Cardiovascular Rhythm: regular Heart Sounds: Present: S1 & S2 - Extremities Extremities: no ischemia, pulses intact, pulses symmetrical, No edema, normal temperature, normal color Extremity abnormal: tenderness (Extreme tenderness on palpation of the left outer hip) Peripheral Pulses: within normal limits - Abdominal General gastrointestinal: soft, non-tender, non-distended, normal bowel sounds - Integumentary Integumentary: Present: clear, warm, dry - Psychiatric Psychiatric: appropriate mood/affect, intact judgment & insight, memory intact, cooperative - Neurologic Neurologic: CNII-XII intact, moves all extremities - Allied Health Allied health notes reviewed: nursing HEART Score - HEART Score EKG: Normal Age: < 45 Risk factors: 1-2 risk factors Troponin: < normal limit - Critical Actions Critical Actions: 0-3 pts:0.9-1.7%risk of adverse cardiac event.Candidate for discharge Results - Labs CBC & Chem 7: 02/04/22 05:32 02/04/22 05:32 Labs: Laboratory Last Values WBC 6.9 K/mm3 (4.5-11.0) 02/04/22 05:32 RBC 4.43 M/mm3 (3.65-5.03) 02/04/22 05:32 Hgb 14.1 gm/dl (10.1-14.3) 02/04/22 05:32 Hct 41.5 % (30.3-42.9) 02/04/22 05:32 MCV 94 fl (79-97) 02/04/22 05:32 MCH 32 pg (28-32) 02/04/22 05:32 MCHC 34 % (30-34) 02/04/22 05:32 RDW 14.7 % (13.2-15.2) 02/04/22 05:32 Plt Count 319 K/mm3 (140-440) 02/04/22 05:32 Lymph % (Auto) 23.7 % (13.4-35.0) 02/04/22 05:32 [place] % (Auto) 7.6 % (0.0-7.3) H 02/04/22 05:32 Eos % (Auto) 0.7 % (0.0-4.3) 02/04/22 05:32 Baso % (Auto) 1.5 % (0.0-1.8) 02/04/22 05:32 Lymph # (Auto) 1.6 K/mm3 (1.2-5.4) 02/04/22 05:32 [place] # (Auto) 0.5 K/mm3 (0.0-0.8) 02/04/22 05:32 Eos # (Auto) 0.0 K/mm3 (0.0-0.4) 02/04/22 05:32 Baso # (Auto) 0.1 K/mm3 (0.0-0.1) 02/04/22 05:32 Seg Neutrophils % 66.5 % (40.0-70.0) 02/04/22 05:32 Seg Neutrophils # 4.6 K/mm3 (1.8-7.7) 02/04/22 05:32 PT 12.3 Sec. (12.2-14.9) 02/04/22 05:32 INR 0.83 (0.87-1.13) L 02/04/22 05:32 APTT 26.0 Sec. (24.2-36.6) 02/03/22 09:32 Sodium 139 mmol/L (137-145) 02/04/22 05:32 Potassium 4.2 mmol/L (3.6-5.0) D 02/04/22 05:32 Chloride 109.5 mmol/L (98-107) H 02/04/22 05:32 Carbon Dioxide 21 mmol/L (22-30) L 02/04/22 05:32 Anion Gap 13 mmol/L 02/04/22 05:32 BUN 13 mg/dL (7-17) 02/04/22 05:32 Creatinine 0.6 mg/dL (0.6-1.2) 02/04/22 05:32 Estimated GFR > 60 ml/min 02/04/22 05:32 BUN/Creatinine Ratio 22 % 02/04/22 05:32 Glucose 100 mg/dL (65-100) 02/04/22 05:32 Calcium 8.2 mg/dL (8.4-10.2) L 02/04/22 05:32 HCG, Qual Negative (Negative) 02/03/22 09:32 Blood Type B POSITIVE 02/03/22 10:17 Antibody Screen Negative 02/03/22 10:17 [place]/IV: Voiding Method Bedpan Active Medications - Current Medications Current Medications: Generic Name Dose Route Start Last Admin Trade Name Freq PRN Reason Stop Dose Admin Acetaminophen 650 mg 02/03/22 11:00 Acetaminophen 325 Mg Tab PO Q4H PRN Pain MILD(1-3)/Fever >100.5/MANCUSO Acetaminophen 650 mg 02/04/22 10:03 Acetaminophen 650 Mg Rect Supp [place] Q4H PRN Pain MILD(1-3)/Fever >100.5/MANCUSO Enoxaparin Sodium 40 mg 02/03/22 12:00 02/03/22 11:48 Enoxaparin 30 Mg/0.3 Ml Inj SUB-Q Not Given QDAY [facility] Fentanyl 50 mcg 02/04/22 10:32 02/04/22 10:35 Fentanyl 100 Mcg/2 Ml Inj IV 50 mcg Q5MIN PRN Administration Pain , Severe (7-10) Hydromorphone HCl 1 mg 02/04/22 12:29 Hydromorphone 1 Mg/1 Ml Inj IV Q4H PRN Pain , Severe (7-10) Sodium Chloride 1,000 mls @ 150 mls/hr 02/03/22 09:42 02/04/22 06:00 Nacl 0.9% 1000 Ml IV 150 mls/hr DIRECT [facility] Administration Vancomycin HCl 1 gm in 250 mls @ 166.667 mls/hr 02/04/22 10:00 02/04/22 10:29 Vancomycin/Ns 1 Gm/250 Ml IV 02/04/22 15:00 166.667 mls/hr PREOP NR Administration Protocol Ibuprofen 800 mg 02/04/22 10:03 Ibuprofen 800 Mg Tab PO Q8H PRN Pain, Moderate (4-6) Ketorolac Tromethamine 15 mg 02/04/22 10:03 Ketorolac 30 Mg/1 Ml Inj IV 02/09/22 10:02 Q6H PRN Pain, Moderate (4-6) Nicotine 21 mg 02/03/22 19:00 02/04/22 09:01 Nicotine 21 Mg/24 Hr Patch TD 21 mg QDAY [facility] Administration Ondansetron HCl 4 mg 02/04/22 10:32 Ondansetron 4 Mg/2 Ml Inj IV ONCE PRN Nausea And Vomiting Oxycodone HCl 10 mg 02/04/22 12:25 02/04/22 12:35 Oxycodone 5 Mg Tab PO 10 mg Q6H PRN Administration Pain, Moderate (4-6) Sodium Chloride 10 ml 02/03/22 22:00 02/04/22 12:36 Sodium Chloride 0.9% 10 Ml Flush Syringe IV 10 ml BID [facility] Administration Sodium Chloride 10 ml 02/03/22 10:55 Sodium Chloride 0.9% 10 Ml Flush Syringe IV PRN PRN LINE FLUSH Sodium Chloride 10 ml 02/04/22 11:00 Sodium Chloride 0.9% 10 Ml Flush Syringe IV 02/10/22 10:59 PRN NR
[2022-02-04] MEDS: CALCIUM CARBONATE 1250 MG TAB PO SCH (21:06)
[2022-02-05] MEDS: HYDROmorphone 1 MG/1 ML INJ IV PRN ×5 (01:12→22:31)
[2022-02-05] MEDS: oxyCODONE 5 MG TAB PO PRN ×3 (03:02→15:27)
[2022-02-05 06:43] LABS: Basophils # (Auto) 0.1 K/mm3 (0.0-0.1); Basophils % (Auto) 0.6 % (0.0-1.8); Eosinophils % (Auto) 0.3 % (0.0-4.3); Hematocrit 40.5 % (30.3-42.9); Hemoglobin 13.2 gm/dl (10.1-14.3); Lymphocytes # (Auto) 2.1 K/mm3 (1.2-5.4); Lymphocytes % (Auto) 19.4 % (13.4-35.0); Mean Corpuscular HGB Conc 33 % (30-34); Mean Corpuscular Volume 94 fl (79-97); Monocytes # (Auto) 0.8 K/mm3 (0.0-0.8); Monocytes % (Auto) 7.5 % (0.0-7.3); Platelet Count 284 K/mm3 (140-440); Red Blood Count 4.29 M/mm3 (3.65-5.03); Red Cell Distribution Width 14.4 % (13.2-15.2)
[2022-02-05 06:48] LABS: Blood Urea Nitrogen 9 mg/dL (7-17); Calcium 8.7 mg/dL (8.4-10.2); Hemolysis Index 3
[2022-02-05 06:54] LABS: BUN/Creatinine Ratio 18
[2022-02-05] MEDS: CALCIUM CARBONATE 1250 MG TAB PO SCH ×2 (09:15→22:30)
[2022-02-05] MEDS: NICOTINE 21 MG/24 HR PATCH TD SCH (09:15)
[2022-02-05] MEDS: APIXABAN 2.5 MG TAB PO SCH ×2 (09:15→22:30)
[2022-02-06] MEDS: oxyCODONE 5 MG TAB PO PRN ×2 (00:45→08:34)
[2022-02-06] MEDS: HYDROmorphone 1 MG/1 ML INJ IV PRN ×3 (02:42→10:55)
[2022-02-06] MEDS: APIXABAN 2.5 MG TAB PO SCH (10:08)
[2022-02-06] MEDS: NICOTINE 21 MG/24 HR PATCH TD SCH (10:08)
[2022-02-06] MEDS: CALCIUM CARBONATE 1250 MG TAB PO SCH (10:08)
--- NOTE | 2022-02-06 12:07 | Discharge Summary ---
Providers - Providers Date of Admission: 02/03/22 10:55 Attending physician: PRAMOD FISHER 02/03/22 09:33 Consult to Physician [CONS] Stat Comment: possible or today Consulting Provider: CATHIE DEE Physician Instructions: keep npo, pain meds, ivf, blood, ims to admit Reason For Exam: femoral neck fracture 02/03/22 13:39 Physical Therapy Evaluation and Treat [CONS] Routine Comment: Please evaluate after surgical intervention. Reason For Exam: Left femoral neck fracture 02/04/22 10:03 Consult to Case Management [CONS] Routine Services Needed at Discharge: Other Notified:: yes Additional Physician Instructions: Assess Discharge needs. Physical Therapy Evaluation and Treat [CONS] Routine Comment: Reason For Exam: Eval and Treat Weight bearing status?: Full wt bearing Assistive devices?: Yes If so list: Walker Primary care physician: [employer] OFFICER Hospitalization Condition: Good Disposition: 30 STILL A PATIENT Exam - Constitutional Vitals: Temp Pulse Resp BP Pulse Ox 98.3 F 65 17 129/86 100 02/05/22 21:48 02/05/22 21:48 02/06/22 04:00 02/05/22 21:48 02/06/22 04:00 Plan Follow up with: PRIMARY CAREMD [Primary Care Provider] - 3-5 Days
[2022-02-06 12:57] VITALS: BP 98/72
== END 2022-02-06 14:00 | disposition home or self-care (01) | DRG 482 ==
LOC: ED 23:21 → 3A 02-03 10:55
PROVIDERS: ADMIT Student in an Organized Health Care Education/Training Program; ATTEND Internal Medicine
PROC: 0QS734Z Reposition Left Upper Femur with Internal Fixation Device, Percutaneous Approach (ICD-10-PCS; principal; 2022-02-04)
DX: S72.002A Fracture of unspecified part of neck of left femur, initial encounter for closed fracture (principal); D72.829 Elevated white blood cell count, unspecified; F17.200 Nicotine dependence, unspecified, uncomplicated; E87.6 Hypokalemia; W18.39XA Other fall on same level, initial encounter; Y93.89 Activity, other specified; Z90.710 Acquired absence of both cervix and uterus; Z86.718 Personal history of other venous thrombosis and embolism; Z88.5 Allergy status to narcotic agent; Z88.0 Allergy status to penicillin; Y92.89 Other specified places as the place of occurrence of the external cause; Y99.8 Other external cause status
CPT/HCPCS: 36415; 80048; 82310; 84703; 85025; 85027; 85610; 85730; 86850; 86900; 86901; G0378; C1713; J1100; J1170; J1885; J2270; J2405; J2704; J3010; J3370; J7030